=== PATIENT | female | born 1995 | race Caucasian/White ===

== ENCOUNTER 2016-11-06 22:59 | Emergency (ER) | payer OTHER ==
[~2016-11-06] VITALS: Ht 165.1 cm; Wt 53.1 kg
[2016-11-06 23:36] VITALS: BP 144/83
--- NOTE | 2016-11-07 00:34 | NUR ---
TO ER OF1
--- NOTE | 2016-11-07 01:09 | NUR ---
Patient being evaluated by physician at bedside.
--- NOTE | 2016-11-07 02:55 | NUR ---
RESULTS BACK AND NOTED BY ERMD AND FOR D/C
[2016-11-07 03:01] VITALS: BP 119/78
--- NOTE | 2016-11-07 03:01 | NUR ---
Patient discharged with v/s stable. Written and verbal after care instructions given and explained. Patient verbalized understanding. Ambulatory with steady gait. All questions addressed prior to discharge. Advised to follow up with PMD.
== END 2016-11-07 03:01 | disposition home or self-care (01) ==
LOC: MED 22:59
DX: S09.90XA Unspecified injury of head, initial encounter (principal); F07.81 Postconcussional syndrome; W51.XXXA Accidental striking against or bumped into by another person, initial encounter; Y93.75 Activity, martial arts; Y92.89 Other specified places as the place of occurrence of the external cause; Y99.8 Other external cause status
CPT/HCPCS: 70450; 81025; 99284